=== PATIENT | male | born 1990 | race Caucasian/White ===

== ENCOUNTER 2017-06-02 17:56 | Emergency (ER) | payer BC, OTHER ==
[2017-06-02 17:59] VITALS: BP 124/79; PULSE 55; TEMP 97.5; BMI 27.7
--- NOTE | 2017-06-02 18:01 | PDOC ---
History of Present Illness - History of Present Illness Initial Comments: 06/02/17 18:17 The patient is a 26 year old male, with no significant past medical history, who presents to the emergency department with, left ankle pain and soft tissue swelling s/p fall from climbing approx. one week ago. The patient reports that he fell while climbing and rolled his left ankle out. The patient states the left ankle swelling has improved throughout the past week but is still painful and swollen. He denies any recent fevers, chills, headache or dizziness. He denies any recent nausea, vomit, diarrhea or constipation. He denies any recent chest pain or shortness of breath. He denies any recent dysuria, frequency, urgency or hematuria. 06/02/17 18:43 <Jagdish Partida - Last Filed: 06/02/17 18:43> <Mac Bang - Last Filed: 06/02/17 19:08> - General Chief Complaint: Pain, Acute Stated Complaint: LEFT ANKLE PAIN Time Seen by Provider: 06/02/17 18:01 Past History <Jagdish Partida - Last Filed: 06/02/17 18:43> - Past Medical History Other medical history: DENIES - Psycho/Social/Smoking Cessation Hx Anxiety: No Suicidal Ideation: No Smoking History: Never smoked Hx Alcohol Use: Yes Drug/Substance Use Hx: No Substance Use Type: Alcohol <Mac Bang - Last Filed: 06/02/17 19:08> - Past Medical History Allergies/Adverse Reactions: Allergies Allergy/AdvReac Type Severity Reaction Status Date / Time amoxicillin Allergy Verified 06/02/17 17:56 Home Medications: Ambulatory Orders NK [No Known Home Medication] 06/02/17 Review of Systems - Review of Systems Comments:: 06/02/17 18:18 GENERAL/CONSTITUTIONAL: No fever or chills. No weakness. HEAD, EYES, EARS, NOSE AND THROAT: No change in vision. No ear pain or discharge. No sore throat. CARDIOVASCULAR: No chest pain or shortness of breath. RESPIRATORY: No cough, wheezing, or hemoptysis. GASTROINTESTINAL: No nausea, vomiting, diarrhea or constipation. GENITOURINARY: No dysuria, frequency, or change in urination. MUSCULOSKELETAL: +Left ankle pain. +Left ankle swelling. No neck or back pain. SKIN: No rash NEUROLOGIC: No headache, vertigo, loss of consciousness, or change in strength/ sensation. ENDOCRINE: No increased thirst. No abnormal weight change. HEMATOLOGIC/LYMPHATIC: No anemia, easy bleeding, or history of blood clots. ALLERGIC/IMMUNOLOGIC: No hives or skin allergy. <Jagdish Partida - Last Filed: 06/02/17 18:43> *Physical Exam - Vital Signs Last Vital Signs Temp Pulse Resp BP Pulse Ox 97.5 F L 55 L 18 124/79 100 06/02/17 17:56 06/02/17 17:56 06/02/17 17:56 06/02/17 17:56 06/02/17 17:56 - Physical Exam Comments: 06/02/17 18:23 GENERAL: Awake, alert, and fully oriented, in no acute distress HEAD: No signs of trauma EYES: PERRLA, EOMI, sclera anicteric, conjunctiva clear ENT: Auricles normal inspection, hearing grossly normal, nares patent, oropharynx clear without exudates. Moist mucosa NECK: Normal ROM, supple, no lymphadenopathy, JVD, or masses LUNGS: Breath sounds equal, clear to auscultation bilaterally. No wheezes, and no crackles HEART: Regular rate and rhythm, normal S1 and S2, no murmurs, rubs or gallops ABDOMEN: Soft, nontender, normoactive bowel sounds. No guarding, no rebound. No masses EXTREMITIES: +Soft tissue swelling lateral malleolus and foot on the left lower extremity, most tender to the distal fibula. No ligament laxity, foot grossly intact. Normal range of motion. No clubbing or cyanosis. No cords, erythema. NEUROLOGICAL: Cranial nerves II through XII grossly intact. Normal speech, normal gait SKIN: Warm, Dry, normal turgor, no rashes or lesions noted. <Jagdish Partida - Last Filed: 06/02/17 18:43> - Vital Signs Last Vital Signs Temp Pulse Resp BP Pulse Ox 97.5 F L 55 L 18 124/79 100 06/02/17 17:56 06/02/17 17:56 06/02/17 17:56 06/02/17 17:56 06/02/17 17:56 <Mac Bang - Last Filed: 06/02/17 19:08> Medical Decision Making - Medical Decision Making 06/02/17 19:05 No Fx Seen on X-Ray Radiologists Reading pending <Mac Bang - Last Filed: 06/02/17 19:08> *DC/Admit/Observation/Transfer - Attestations Scribe Attestion: 06/02/17 18:25 Documentation prepared by Jagdish Partida, acting as medical registrar for Mac Bang DO. <Jagdish Partida - Last Filed: 06/02/17 18:43> - Attestations Physician Attestion: 06/02/17 18:01 I, Dr. Mac Bang, attest that this document has been prepared under my direction and personally reviewed by me in its entirety. I further attest, that it accurately reflects all work, treatment, procedures and medical decision -making performed by me. <Mac Bang - Last Filed: 06/02/17 19:08> Diagnosis at time of Disposition: Severe sprain of left ankle Qualifiers: Encounter type: initial encounter Qualified Code(s): S93.402A - Sprain of unspecified ligament of left ankle, initial encounter - Discharge Dispostion Disposition: HOME Condition at time of disposition: Good - Patient Instructions Printed Discharge Instructions: DI for Ankle Sprain Additional Instructions: Maria E Bran this happened but I do not see a fracture. If the radiologist does we will give you a call. Otherwise baby it for another week and keep it elevated as much as possible Best- Dr. Mac Bang
== END 2017-06-02 19:12 | disposition home or self-care (01) ==
LOC: FER 17:56
DX: S93.402A Sprain of unspecified ligament of left ankle, initial encounter (principal); X58.XXXA Exposure to other specified factors, initial encounter; Y93.89 Activity, other specified; Y92.89 Other specified places as the place of occurrence of the external cause
CPT/HCPCS: 73610-TC-LT; 73630-TC-LT; 99281-25

== ENCOUNTER 2022-11-25 11:54 | Emergency (ER) | payer OTHER ==
[2022-11-25 12:02] VITALS: BP 137/81; PULSE 78; RESP 18; TEMP 97.8; BMI 29.0
== END 2022-11-25 12:44 | disposition home or self-care (01) ==
LOC: FER 11:54
PROC: 0HQFXZZ Repair Right Hand Skin, External Approach (ICD-10-PCS; principal; 2022-11-25)
DX: S61.212A Laceration without foreign body of right middle finger without damage to nail, initial encounter (principal); W26.8XXA Contact with other sharp object(s), not elsewhere classified, initial encounter
CPT/HCPCS: 99282-25